=== PATIENT | male | born 1965 | race Caucasian/White ===

== ENCOUNTER 2020-11-19 14:05 | Inpatient (IN) | payer MEDICARE, OTHER ==
[~2020-11-19] VITALS: Ht 170.2 cm; Wt 97.2 kg
[2020-11-19] VITALS (9 sets, daily range): BP systolic 119–166; BP diastolic 31–92
--- NOTE | 2020-11-19 14:05 | NUR ---
PT BIB [facility] C/O SOB DURING DIALYSIS. PT IS AAOX2, NOT IN RESPIRATORY DISTRESS, HOOKED TO TOWER ATTENDANT, KEPT RESTED AND COMFORTABLE. WILL CONTINUE TO MONITOR.
--- NOTE | 2020-11-19 14:08 | NUR ---
PT SEEN AND EXAMINED BY .
--- NOTE | 2020-11-19 14:10 | NUR ---
RT AT BEDSIDE FOR BIPAP SET UP.
--- NOTE | 2020-11-19 14:16 | NUR ---
ROUTE RELIEF DRIVER AT BEDSIDE FOR XRAY.
[2020-11-19] MEDS ORDERED: CALC667C6 PO (14:33)
[2020-11-19] MEDS ORDERED: SODI15OR6 PO (14:33)
[2020-11-19] MEDS ORDERED: FOLI0.8T2 PO (14:33)
[2020-11-19] MEDS ORDERED: CLON0.1T PO (14:33)
[2020-11-19] MEDS ORDERED: IPRA4AER IH (14:33)
[2020-11-19] MEDS ORDERED: OLME1TAB19 PO (14:33)
[2020-11-19] MEDS ORDERED: ASPI-1169 PO (14:33)
[2020-11-19] MEDS ORDERED: INSU100V11 SQ (14:33)
[2020-11-19] MEDS ORDERED: FURO80TA85 PO (14:33)
[2020-11-19] MEDS ORDERED: AMLO-213 PO (14:33)
[2020-11-19] MEDS ORDERED: LIDOCAINE HCL/MPF 1% 30 ML VIAL IJ ONE (15:36)
[2020-11-19 16:12] LABS: BASOPHILS # (AUTO) 0.1 /CMM (0.0-0.2); HEMATOCRIT 31 % (39-51); HEMOGLOBIN 9.5 g/dL (13.5-17.5); LYMPHOCYTES # (AUTO) 0.4 /CMM (0.8-4.8); LYMPHOCYTES % (AUTO) 5.4 % (20.0-44.0); MEAN CORPUSCULAR HGB CONC 31 g/dl (31.0-36.0); MEAN CORPUSCULAR VOLUME 101 fL (80-96); MONOCYTES # (AUTO) 0.7 /CMM (0.1-1.30); MONOCYTES % (AUTO) 8.8 % (2.0-12.0); NEUTROPHILS # (AUTO) 6.2 /CMM (1.8-8.9); NEUTROPHILS % (AUTO) 80.8 % (43.0-81.0); PLATELET COUNT (AUTO) 180 /CMM (150-450); RED BLOOD CELL COUNT(AUTO) 3.02 MIL/uL (4.5-6.0); WHITE BLOOD COUNT (AUTO) 7.7 K/uL (4.3-11.0)
[2020-11-19 16:33] LABS: ALANINE AMINOTRANSFERASE 14 U/L (12-78); ALBUMIN 2.7 g/dL (3.4-5.0); ALKALINE PHOSPHATASE 62 U/L (46-116); ASPARTATE AMINOTRANSFERASE 12 U/L (15-37); BILIRUBIN,DIRECT 0.1 mg/dL (0.0-0.2); BILIRUBIN,TOTAL 0.3 mg/dL (0.2-1.0); CALCIUM, SERUM 8.5 mg/dL (8.5-10.1); CARBON DIOXIDE 24 mmol/L (21-32); CHLORIDE 103 mmol/L (98-107); GLUCOSE 158 mg/dL (74-106); NT-PRO BNP 12433 pg/mL (0-125); POTASSIUM 5.7 mmol/L (3.5-5.1); SODIUM SERUM 137 mmol/L (136-145); TOTAL PROTEIN, SERUM 6.8 g/dL (6.4-8.2); UREA NITROGEN, BLOOD 76 mg/dL (7-18)
[2020-11-19 16:34] LABS: CREATININE 9.5 mg/dL (0.6-1.3)
--- NOTE | 2020-11-19 16:52 | NUR ---
DISMANTLER AT BEDSIDE FOR THORACENTESIS.
[2020-11-19] MEDS ORDERED: SODIUM POLYSTYRENE SULFONATE 15 G/60 ML BOTTLE PO ONE ×2 (17:00→20:00)
[2020-11-19] MEDS ORDERED: SODIUM POLYSTYRENE SULFONATE 15 G/60 ML BOTTLE ONE (17:25)
[2020-11-19] MEDS ORDERED: Z GUARD REMEDY 2 OZ OINT TP PRN (17:30)
[2020-11-19] MEDS ORDERED: HYDROCODONE/APAP 5/325MG TABLET PO PRN (17:30)
[2020-11-19] MEDS ORDERED: ZOLPIDEM TARTRATE 5 MG TABLET PO PRN (17:30)
[2020-11-19] MEDS ORDERED: ACETAMINOPHEN 325 MG TABLET PO PRN (17:30)
--- NOTE | 2020-11-19 18:52 | NUR ---
NURSING SUP GAVE TELE BED 115-1.
--- NOTE | 2020-11-19 19:31 | NUR ---
ICU 255
--- NOTE | 2020-11-19 19:46 | NUR ---
REPORT GIVEN TO CARLOS WASHINGTON FOR SHARON.
--- NOTE | 2020-11-19 20:00 | NUR ---
MAYANK ZACARIAS TALKING TO PT FAMILY MEMBER REGARDING PT.
--- NOTE | 2020-11-19 20:11 | NUR ---
patient taken up to assigned room for SHARON.
[2020-11-19] MEDS: ONDANSETRON HCL/PF 4 MG/2 ML VIAL IVP PRN (20:20)
--- NOTE | 2020-11-19 20:30 | NUR ---
RN NOTES 2004 PM - [facility]. HAD S/P THORACENTESIS WITH 1.6LITER OUTPUT. PATIENT IS AOX 3, PLACED ON MONITOR SATURATION 97%, NSR WITH 1 DEGREE AVB, BREATHING EVEN AND UNLABORED. NO SOB. COMPLAINING OF PAIN ON BLE. WITH IV SITE ON LA ML INTACT AND PATENT, RA AVF WITH + BRUIT AND + THRILL LCW PERMA CATH WITH CLEAN DRESSING. WITH GOOD PERIPHERAL PULSES. SPPOKE WITH DAUGHTER ALEX VIA CELLPHONE AND WANTED PATIENT TO TRANSFER TO [facility] SON POSSIBLE. EXPLAINED THAT IT WILL NOT GONNA HAPPEN TONIGHT BECAUSE NO CM AT THIS TIME TO FIX ALL TRANSFER. ALEX IS CONCERNED IF WILL DO HD AT THIS TIME,. INFORMED DR RERE CAPONE REGARDING FAMILY CONCERNED.
[2020-11-19] MEDS: CALCIUM ACETATE 667 MG TABLET PO SCH (20:38)
--- NOTE | 2020-11-19 21:00 | NUR ---
RN NOTES PATIENT PLACED ON BPAP BY RT RATE 14 15/5 FIO2 30% SATURATION 94%.
--- NOTE | 2020-11-19 22:05 | NUR ---
RN NOTES DR. JERNIGAN ON THE FLOOR SPOKE TO PATIENT AT BEDSIDE. PER OFFICE INSPECTOR HE WILL HAVE DIALYSIS ANYTIME TONIGHT. VERIFY KAYEXALATE ORDER IF WILL GIVING IT AGAIN PER ER THEY GAVE 15 GRAM ALREADY. PER ONCALL TO CANCEL KAYEXALATE ORDER.
--- NOTE | 2020-11-19 23:00 | NUR ---
RN NOTES DIALYSIS STARTED AT THIS TIME
[2020-11-20] VITALS (41 sets, daily range): BP systolic 53–161; BP diastolic 37–89
[2020-11-20] MEDS ORDERED: ALBUMIN 25% 25 GM in PREMIX 1 EA IV ONE
--- NOTE | 2020-11-20 00:03 | NUR ---
RN NOTES DIALYSIS DONE REMOVE 2L. PATIENT ASLEEP VSS.
[2020-11-20] MEDS ORDERED: ALBUMIN 25% 100 ML IV ONE (00:19)
--- NOTE | 2020-11-20 00:19 | NUR ---
RN NOTES ALBUMIN IV ADMINISTERED DUE TO HYPOTENSION DURING DIALYSIS. WILL CLOSELY MONITOR.
[2020-11-20 04:32] LABS: BASOPHILS % (AUTO) 0.6 % (0.0-2.0); EOSINOPHILS % (AUTO) 7.2 % (0.0-6.0); HEMATOCRIT 27 % (39-51); HEMOGLOBIN 8.5 g/dL (13.5-17.5); LYMPHOCYTES # (AUTO) 0.4 /CMM (0.8-4.8); LYMPHOCYTES % (AUTO) 8.2 % (20.0-44.0); MEAN CORPUSCULAR HGB CONC 31 g/dl (31.0-36.0); MEAN CORPUSCULAR VOLUME 101 fL (80-96); MONOCYTES # (AUTO) 0.6 /CMM (0.1-1.30); MONOCYTES % (AUTO) 11.7 % (2.0-12.0); NEUTROPHILS # (AUTO) 3.9 /CMM (1.8-8.9); NEUTROPHILS % (AUTO) 72.3 % (43.0-81.0); PLATELET COUNT (AUTO) 139 /CMM (150-450); RED BLOOD CELL COUNT(AUTO) 2.69 MIL/uL (4.5-6.0); WHITE BLOOD COUNT (AUTO) 5.3 K/uL (4.3-11.0)
[2020-11-20 04:48] LABS: THYROID STIMULATING HORMONE 1.847 uIU/mL (0.358-3.74)
[2020-11-20 04:52] LABS: CALCIUM, SERUM 8.3 mg/dL (8.5-10.1); MAGNESIUM 2.1 mg/dL (1.8-2.4); PHOSPHORUS 4.7 mg/dL (2.5-4.9); POTASSIUM 4.7 mmol/L (3.5-5.1)
[2020-11-20 05:01] LABS: CREATININE 8.4 mg/dL (0.6-1.3)
--- NOTE | 2020-11-20 06:43 | NUR ---
RN NOTES PATIENT ASLEEP WELL ON BED. BREATHING EVEN AND UNLABORED ON BIPAP TOLERATED WELL. AFEBRILE VSS. S/P DIALYSIS TOLERATED WELL. KEPT PT CLEAN AND DRY. WILL CONTINUE TO MONITOR.
[2020-11-20] MEDS: ONDANSETRON HCL/PF 4 MG/2 ML VIAL IVP PRN (08:32)
[2020-11-20] MEDS: CLONIDINE HCL 0.1 MG TABLET PO SCH ×2 (09:00→09:40)
[2020-11-20] MEDS ORDERED: ASPIRIN 81 MG TAB.CHEW PO SCH (09:00)
[2020-11-20] MEDS ORDERED: AMLODIPINE BESYLATE 10 MG TABLET PO SCH (09:00)
[2020-11-20] MEDS: CALCIUM ACETATE 667 MG TABLET PO SCH ×2 (09:38→13:45)
--- NOTE | 2020-11-20 13:30 | NUR ---
MD reviewing pt data and interventions given - additional dialysis to be done and then pt is to be discharged home to follow with primary MD in a.m. - pt remaining restful without incident - all sites same
--- NOTE | 2020-11-20 14:00 | NUR ---
door trimmer atttending - rambo pt - to start on dialysis as perr order - via left subclavian vascath site
--- NOTE | 2020-11-20 16:00 | NUR ---
pt tolerated dialysis with 2000 ml off -vs and ns and all sites same
--- NOTE | 2020-11-20 16:50 | NUR ---
pt voices understanding of aftercare instructions - discharging home in care of daughter - to private auto via wheelchair to follow with safety investigator at [facility] as previously discussed with attending MD - pt in good spirits with vs and ns and all sites unchanged - pt with consistent history of transferring without difficulty -
[2020-11-20] MEDS ORDERED: FUROSEMIDE 40 MG TABLET PO SCH (19:28)
== END 2020-11-20 17:43 | disposition short-term general hospital (02) | DRG 189 ==
LOC: ER 14:05 → TELE1 19:13 → ICU 19:32
PROC: 5A09357 Assistance with Respiratory Ventilation, Less than 24 Consecutive Hours, Continuous Positive Airway Pressure (ICD-10-PCS; principal; 2020-11-19)
PROC: 5A1D70Z Performance of Urinary Filtration, Intermittent, Less than 6 Hours Per Day (ICD-10-PCS; 2020-11-19)
PROC: 0W993ZZ Drainage of Right Pleural Cavity, Percutaneous Approach (ICD-10-PCS; 2020-11-19)
PROC: 05HA33Z Insertion of Infusion Device into Left Brachial Vein, Percutaneous Approach (ICD-10-PCS; 2020-11-19)
DX: J96.01 Acute respiratory failure with hypoxia (principal); N18.6 End stage renal disease; I12.0 Hypertensive chronic kidney disease with stage 5 chronic kidney disease or end stage renal disease; J90 Pleural effusion, not elsewhere classified; Z20.822 Contact with and (suspected) exposure to COVID-19; Z79.82 Long term (current) use of aspirin; Z99.2 Dependence on renal dialysis; E87.5 Hyperkalemia; Z79.4 Long term (current) use of insulin; E11.22 Type 2 diabetes mellitus with diabetic chronic kidney disease; Z79.51 Long term (current) use of inhaled steroids; Z79.899 Other long term (current) drug therapy; M89.9 Disorder of bone, unspecified; G47.33 Obstructive sleep apnea (adult) (pediatric); E66.01 Morbid (severe) obesity due to excess calories; D64.9 Anemia, unspecified; Z68.33 Body mass index [BMI] 33.0-33.9, adult; R79.89 Other specified abnormal findings of blood chemistry
CPT/HCPCS: 36415; 71045-TC; 80048-TC; 80061-TC; 80076-TC; 83605-TC; 83735-TC; 83880; 84100-TC; 84443-TC; 84484-TC; 85025-TC; 85730-TC; 86705; 86706; 87040-TC; 87081-TC; 90935-TC; 93307-TC; 94660; 94799-TC; A4216; C9803; G0378; J2405; J3490; P9047

== ENCOUNTER 2021-12-04 00:38 | Inpatient (IN) | payer MEDICARE, OTHER ==
[2021-12-04] VITALS (19 sets, daily range): BP systolic 97–167; BP diastolic 41–125
[~2021-12-04] VITALS: Ht 172.7 cm; Wt 84.4 kg
[~2021-12-04 00:38] MED LIST: AMLO-213 PO; ASPI-1169 PO; CALC667C6 PO; FOLI0.8T2 PO; FURO80TA85 PO; INSU100V11 SQ; IPRA4AER IH; OLME1TAB19 PO; SODI15OR6 PO
--- NOTE | 2021-12-04 00:50 | NUR ---
[id number] FROM HOME C/O SOB X1HOUR NORMALLY ON 5L NC DESATTING AT 92%. HX OF LUNG CA STAGE 3; LAST CHEMO WAS 1 WK AGO. LAST HD WAS 12/02 & 4L REMOVED. JOSE HD AV SHUNT NOTED. PT A/OX4. CONNECTED PT TO POX AND MONITOR. SAFETY MEASURES IN PLACE.
--- NOTE | 2021-12-04 00:55 | NUR ---
RT AT PT'S BEDSIDE. PT ON BIPAP SETTINGS: IPAP 20 EPAP 5 RR 16 TOLERATING AT 100%.
[2021-12-04] MEDS ORDERED: FUROSEMIDE 40 MG/4 ML VIAL IV ONE (01:00)
--- NOTE | 2021-12-04 01:01 | NUR ---
COVID ANTIGEN SWAB COLLECTED AND SENT TO LAB
[2021-12-04] MEDS ORDERED: FUROSEMIDE 40 MG/4 ML VIAL ONE (01:02)
--- NOTE | 2021-12-04 01:10 | NUR ---
RT NOTE Pt rec'd on cpap mask @ 15lpm via [employer]. Pt showed signs of tachypnea and SOB. Pt diaphoretic and coarse crackles heard on auscultation. Pt placed on bipap per md orders on noted settings as charted. Alarms are set and audible. Ambu bag @ bedside. Bipap plugged into red outlet. ABG to be taken in 1 hour. Will continue to monitor closely. Addendum: 12/04/21 at 0114 by MEAGAN WILLIS RT Amended: Links added.
[2021-12-04] MEDS ORDERED: MORPHINE SULFATE INJ 2 MG/ML DISP.SYRIN ONE (01:41)
[2021-12-04] MEDS ORDERED: MORPHINE SULFATE INJ 2 MG/ML DISP.SYRIN IV ONE (02:00)
[2021-12-04 02:02] LABS: HEMATOCRIT 31 % (39-51); HEMOGLOBIN 10.1 g/dL (13.5-17.5); MEAN CORPUSCULAR HGB CONC 33 g/dl (31.0-36.0); MEAN CORPUSCULAR VOLUME 94 fL (80-96); RED BLOOD CELL COUNT(AUTO) 3.25 MIL/uL (4.5-6.0); WHITE BLOOD COUNT (AUTO) 5.9 K/uL (4.3-11.0)
[2021-12-04 02:03] LABS: BASOPHILS % (AUTO) 0.2 % (0.0-2.0); LYMPHOCYTES # (AUTO) 0.4 K/uL (0.8-4.8); LYMPHOCYTES % (AUTO) 6.1 % (20.0-44.0); MONOCYTES # (AUTO) 0.6 K/uL (0.1-1.30); NEUTROPHILS # (AUTO) 4.9 K/uL (1.8-8.9); NEUTROPHILS % (AUTO) 82.7 % (43.0-81.0); PLATELET COUNT (AUTO) 135 K/uL (150-450)
--- NOTE | 2021-12-04 02:10 | NUR ---
RT AT BEDSIDE FOR ABG
--- NOTE | 2021-12-04 02:18 | NUR ---
POC BS 118
[2021-12-04] MEDS ORDERED: Calcium Gluconate 0.465 MEQ/ML VIAL IV ONE (02:53)
[2021-12-04] MEDS ORDERED: SODIUM POLYSTYRENE SULFONATE 15 G/60 ML BOTTLE ONE (02:53)
[2021-12-04] MEDS ORDERED: SODIUM BICARBONATE SYR 50 MEQ/50 ML DISP.SYRIN ONE (02:53)
[2021-12-04] MEDS ORDERED: DEXTROSE 50%-WATER 50 ML DISP.SYRIN ONE (02:54)
[2021-12-04] MEDS ORDERED: INSULIN REGULAR, HUMAN 100 UNIT/ML 10 ML VIAL ONE (02:54)
[2021-12-04 03:33] LABS: ALANINE AMINOTRANSFERASE 25 U/L (12-78); ALBUMIN 3.6 g/dL (3.4-5.0); ALKALINE PHOSPHATASE 121 U/L (46-116); ASPARTATE AMINOTRANSFERASE 22 U/L (15-37); BILIRUBIN,DIRECT 0.1 mg/dL (0.0-0.2); BILIRUBIN,TOTAL 0.4 mg/dL (0.2-1.0); CALCIUM, SERUM 7.8 mg/dL (8.5-10.1); CARBON DIOXIDE 25 mmol/L (21-32); CHLORIDE 97 mmol/L (98-107); GLUCOSE 164 mg/dL (74-106); SODIUM SERUM 133 mmol/L (136-145); TOTAL PROTEIN, SERUM 7.8 g/dL (6.4-8.2)
--- NOTE | 2021-12-04 03:38 | NUR ---
XRAY AT BEDSIDE
--- NOTE | 2021-12-04 03:48 | NUR ---
EMT AT BEDSIDE FOR EKG
[2021-12-04] MEDS ORDERED: CEFTRIAXONE 1GM BAG (ER ONLY) 50 ML IV ONE (03:55)
[2021-12-04] MEDS ORDERED: ALBUTEROL FS 2.5 MG/0.5 ML VIAL.NEB ONE (03:56)
--- NOTE | 2021-12-04 03:56 | NUR ---
RT AT BEDSIDEFOR BREATHING TX
--- NOTE | 2021-12-04 03:59 | NUR ---
EPIC PANEL PAGED
--- NOTE | 2021-12-04 04:05 | NUR ---
RT AT PT'S BEDSIDE FOR BREATING TX
--- NOTE | 2021-12-04 04:18 | NUR ---
REPEAT POC BS 102
--- NOTE | 2021-12-04 04:20 | NUR ---
PT UNABLE TO GIVE URINE AT THIS TIME. OFFERED IN AND OUT CATHETER AND PT REFUSED.
[2021-12-04 04:21] LABS: CREATININE 8.9 mg/dL (0.6-1.3); POTASSIUM 9.1 mmol/L (3.5-5.1)
[2021-12-04 04:22] LABS: UREA NITROGEN, BLOOD 80 mg/dL (7-18)
[2021-12-04] MEDS ORDERED: AZITHROMYCIN 500 MG VIAL ONE (04:22)
[2021-12-04] MEDS ORDERED: MAG HYDROX/AL HYDROX/SIMETH 30 ML UDC PO PRN (04:30)
[2021-12-04] MEDS ORDERED: ZOLPIDEM TARTRATE 5 MG TABLET PO PRN (04:30)
[2021-12-04] MEDS ORDERED: MAGNESIUM HYDROXIDE 30 ML UDC PO PRN (04:30)
[2021-12-04] MEDS ORDERED: ONDANSETRON HCL/PF 4 MG/2 ML VIAL IVP PRN (04:30)
[2021-12-04] MEDS ORDERED: Z GUARD REMEDY 4 OZ OINT TP PRN (04:30)
--- NOTE | 2021-12-04 04:31 | NUR ---
Note tr in EDM - 12/04/21 at 0742 by SISI S/W YANIRA (RADIOLOGY). PER YANIRA, STAT ORDER FOR VQ STUDY IS UNABLE TO BE PERFORMED THE CERTIFIED PROCEDURAL CODER NUCLEAR MED TECH, [facility], IS REFUSING TO COME IN. MADE AWARE
--- NOTE | 2021-12-04 04:42 | NUR ---
Note shylahakan in [facility] - 12/04/21 at 0658 by REMBERTO CALLED MARIBEL Temnos TECH REGARDING VQ SCAN ORDER. PER MARIBEL, HE COULD NOT COME BECAUSE HE WILL NOT BE ABLE TO FINISH THE PROCEDURE IN TIME FOR HIS OTHER JOB.
--- NOTE | 2021-12-04 04:42 | NUR ---
CALLED AND SPOKE WITH MARIBEL Skribit TECH AND WAS INFORMED THAT PROCEDURE WILL NOT BE DONE UNTIL THE MORNING. RN PAPERHANGER PIPE IS AWARE
--- NOTE | 2021-12-04 04:45 | NUR ---
LAB AT BEDSIDE FOR BLOOD DRAW
--- NOTE | 2021-12-04 04:50 | NUR ---
COVID PCR SWABBED AND SENT TO LAB
[2021-12-04] MEDS ORDERED: SODIUM BICARBONATE SYR 50 MEQ/50 ML DISP.SYRIN IV ONE (05:00)
[2021-12-04] MEDS ORDERED: INSULIN REGULAR, HUMAN 100 UNIT/ML 10 ML VIAL IV ONE (05:00)
[2021-12-04] MEDS ORDERED: ALBUTEROL FS 2.5 MG/3 ML VIAL.NEB NEB ONE (05:00)
[2021-12-04] MEDS ORDERED: SODIUM POLYSTYRENE SULFONATE 15 G/60 ML BOTTLE RC ONE (05:00)
[2021-12-04] MEDS ORDERED: AZITHROMYCIN 500 MG in IV D5W 250 ML IV ONE (05:00)
[2021-12-04] MEDS ORDERED: Calcium Gluconate 1GM/10ML 4.65 MEQ in IV NS 0.9% 100 ML IV ONE (05:00)
[2021-12-04] MEDS ORDERED: CEFTRIAXONE 1GM BAG (ER ONLY) 1 GM/50 ML PIGGYBACK IV ONE (05:00)
[2021-12-04] MEDS ORDERED: DEXTROSE 50%-WATER 50 ML DISP.SYRIN IVP ONE (05:00)
--- NOTE | 2021-12-04 05:25 | NUR ---
IV JESSICA #20G S/L PATENT AND INTACT. BLOOD COLLECTED AND SENT TO LAB
--- NOTE | 2021-12-04 05:42 | NUR ---
ALEX (DAUGHTER IN LAW) DENNIS (SON IN LAW)
--- NOTE | 2021-12-04 05:45 | NUR ---
CALLED FOR REPORT. RN WILL RETURN CALL.
--- NOTE | 2021-12-04 06:24 | NUR ---
REPORT GIVEN TO KRZYSZTOF
[2021-12-04 06:34] LABS: MAGNESIUM 2.5 mg/dL (1.8-2.4)
[2021-12-04 06:38] LABS: CREATININE 9.3 mg/dL (0.6-1.3); POTASSIUM 8.7 mmol/L (3.5-5.1)
--- NOTE | 2021-12-04 07:03 | NUR ---
RT NOTE pt transferred to ICU 255. pt taken off bipap and placed on 4lnc. movie theater manager aware. Will continue to monitor. Addendum: 12/04/21 at 0704 by MEAGAN WILLIS RT Amended: Links added.
--- NOTE | 2021-12-04 07:05 | NUR ---
pt transported to room 255 on cafeteria monitor per acls without incident
--- NOTE | 2021-12-04 07:54 | NUR ---
RN NOTE PATIENT RECEIVED IN BED, AWAKE, A&OX4. PATIENT ON 4L O2 NC AT THIS TIME SAT 96% ON BEDSIDE MONITOR, LUNG SOUNDS DIMINISHED THROUGHOUT, RR 26. RIGHT ARM AV FISTULA, LEFT AC 18G SL AND LEFT WRIST 20G SL IN PLACE. BED LOCKED AND IN LOWEST POSITION, CALL LIGHT WITHIN REACH, 2 SIDE RAILS UP.
[2021-12-04] MEDS: ASPIRIN 81 MG TAB.CHEW PO SCH (08:09)
[2021-12-04] MEDS: AMLODIPINE BESYLATE 10 MG TABLET PO SCH ×2 (08:09→08:21)
[2021-12-04] MEDS: CALCIUM ACETATE 667 MG CAP/TAB PO SCH ×3 (08:09→17:15)
[2021-12-04] MEDS: VIT B CMPLX 3/FA/VIT C/BIOTIN 1 TAB TABLET PO SCH (08:09)
[2021-12-04] MEDS: INSULIN LISPRO/ASPART 100 UNIT/ML CARTRIDGE SQ SCH ×2 (08:13→17:23)
[2021-12-04] MEDS: HYDROCHLOROTHIAZIDE 25 MG TABLET PO SCH ×2 (08:15→08:21)
[2021-12-04] MEDS: LOSARTAN POTASSIUM 50 MG TABLET PO SCH ×2 (08:16→08:20)
--- NOTE | 2021-12-04 08:21 | NUR ---
RN NOTE PT SCHEDULED FOR STAT HD THIS MORNING. ALL BP MEDS HELD.
[2021-12-04] MEDS: SODIUM POLYSTYRENE SULFONATE 15 G/60 ML BOTTLE PO SCH ×2 (08:34→11:20)
--- NOTE | 2021-12-04 09:05 | NUR ---
RN NOTE PT REFUSING KAYEXELATE AT THIS TIME. STATES HE WILL TAKE IT AFTER RECEIVING HD. PT EDUCATED ON HIGH LEVEL OF POTASSIUM AND RISKS ASSOCIATED WITH REFUSING THIS MEDICATION. PT VERBALIZES UNDERSTANDING, CONTINUES TO REFUSE IT AT THIS TIME.
--- NOTE | 2021-12-04 09:30 | NUR ---
RN NOTE RT UNABLE TO COLLECT BLOOD SAMPLE FOR ABG RESULTS AFTER 2 ATTEMPT. PT REFUSING TO ATTEMPT A THIRD TIME AT THIS TIME. WILL ATTEMPT TO COLLECT LATER AFTER HD.
[2021-12-04] MEDS ORDERED: ALBUMIN 25% 25 GM in PREMIX 1 EA IV PRN (10:30)
--- NOTE | 2021-12-04 12:29 | NUR ---
RN NOTE HD COMPLETED, 3000CC REMOVED. PT TOLERATED WELL, VERBALIZES FEELING BETTER THAN EARLIER. BP 139/65, HR IN THE 80S.
[2021-12-04 15:56] LABS: CALCIUM, SERUM 8.6 mg/dL (8.5-10.1); CREATININE 6.3 mg/dL (0.6-1.3)
[2021-12-04 16:02] LABS: POTASSIUM 6.4 mmol/L (3.5-5.1)
[2021-12-04] MEDS: ACETAMINOPHEN 325 MG TABLET PO PRN (17:15)
--- NOTE | 2021-12-04 17:29 | NUR ---
NM: LUNG V/Q WAS COMPLETED. TECH:RB
[2021-12-04] MEDS: HYDROCODONE/APAP 5/325MG TABLET PO PRN ×2 (17:36→23:54)
--- NOTE | 2021-12-04 17:40 | NUR ---
UNABLE TO OBTAIN ABG. MULTIPLE ATTEMPTS BY 3 DIFFERENT RTS. PT UNCOOPERATIVE. CHARGE NURSE MANDUJANO AND PADMINI COKER NOTIFIED. PT SHOWS NO S/S OF SOB Addendum: 12/04/21 at 1742 by SUSSY DUDLEY RT Amended: Links added.
[2021-12-04] MEDS ORDERED: SODIUM POLYSTYRENE SULFONATE 15 G/60 ML BOTTLE PO ONE (18:00)
--- NOTE | 2021-12-04 18:52 | NUR ---
RN CLOSING NOTE PATIENT REMAINS IN BED, AWAKE, A&OX4. PATIENT ON 4L O2 NC AT THIS TIME SAT 95% ON BEDSIDE MONITOR. RIGHT ARM AV FISTULA, LEFT AC 18G SL LEFT WRIST 20G SL AND LEFT UA MIDLINE IN PLACE. ALL NEEDS ATTENDED DURING SHIFT. BED LOCKED AND IN LOWEST POSITION, CALL LIGHT WITHIN REACH, 2 SIDE RAILS UP. WILL ENDORSE TO MILK TANKER DRIVER NURSE FOR SHARON.
[2021-12-04 19:00] LABS: ABG BASE EXCESS -3.5 mmol/L; ABG OXYGEN SATURATION 94.1 % (92.0-98.5); ABG PCO2 39.6 mmHg (35.0-45.0); ABG PH 7.357 (7.350-7.450); ABG PO2 80.9 mmHg (75.0-100.0); AaDO2 158.8 mmHg; COHb 1.4 % (0.5-1.5); MetHb 0.2 % (0.0-1.5); O2Hb 92.6 % (94.0-97.0); SITE, ABG Left Radial; VENT MODE, BG Nasal Cannula
--- NOTE | 2021-12-04 19:05 | NUR ---
RN OPENING NOTES RECEIVED PATIENT ON BED AWAKE, A/O X 4, ON NASAL CANULA @ 4LPM SATING AT 96%. RESPIRATORY EVEN AND UNLABORED NO SOB NOTED, REMAIN AFEBRILE. DENIES PAIN, NO S/S OF DISTRESS NOTED. PATIENT HAS LAC # 18, LEFT WRIST #20 SL AND LEFT UPPER ARM MID LINE, FLUSHED WITH NS, NO S/S OF INFILTRATION NOTED AT SITE. RIGHT UPPER ARM AV SHUNT FOR DIALYSIS, NO BLEEDING NOTED AT SITE. SAFETY MEASURE PROVIDED. BED IN LOWEST POSITION, LOCKED. CONTINUE TO MONITOR.
[2021-12-04 21:36] LABS: CREATININE 7.1 mg/dL (0.6-1.3)
[2021-12-04 21:41] LABS: POTASSIUM 6.3 mmol/L (3.5-5.1)
[2021-12-05] VITALS (30 sets, daily range): BP systolic 66–158; BP diastolic 28–98
--- NOTE | 2021-12-05 00:15 | NUR ---
RN NOTES DIALYSIS STARTED, PATIENT VITAL SIGN WITH IN NORMAL LIMITS.
--- NOTE | 2021-12-05 02:15 | NUR ---
RN NOTES DIALYSIS DONE, REMOVED 2000ML, PROCEDURE TOLERATED WELL, DENIES PAIN.
[2021-12-05 04:22] LABS: BASOPHILS % (AUTO) 0.3 % (0.0-2.0); EOSINOPHILS % (AUTO) 6.1 % (0.0-6.0); HEMATOCRIT 27 % (39-51); LYMPHOCYTES # (AUTO) 0.3 K/uL (0.8-4.8); LYMPHOCYTES % (AUTO) 9.4 % (20.0-44.0); MEAN CORPUSCULAR HGB CONC 34 g/dl (31.0-36.0); MEAN CORPUSCULAR VOLUME 95 fL (80-96); MONOCYTES # (AUTO) 0.5 K/uL (0.1-1.30); MONOCYTES % (AUTO) 15.2 % (2.0-12.0); NEUTROPHILS # (AUTO) 2.5 K/uL (1.8-8.9); PLATELET COUNT (AUTO) 97 K/uL (150-450); RED BLOOD CELL COUNT(AUTO) 2.85 MIL/uL (4.5-6.0); WHITE BLOOD COUNT (AUTO) 3.6 K/uL (4.3-11.0)
[2021-12-05 04:30] LABS: CALCIUM, SERUM 7.9 mg/dL (8.5-10.1); CREATININE 4.8 mg/dL (0.6-1.3); POTASSIUM 4.3 mmol/L (3.5-5.1)
[2021-12-05 05:18] LABS: BASOPHILS % (MANUAL) 0 % (0.0-2.0); EOSINOPHILS % (MANUAL) 4 % (0-4); LYMPHOCYTES % (MANUAL) 10 % (16-48); MONOCYTES % (MANUAL) 11 % (0-11.0); NEUTROPHILS % (MANUAL) 75 (42-76)
--- NOTE | 2021-12-05 07:13 | NUR ---
RN NOTES PATIENT REMAIN STABLE THROUGH OUT THE SHIFT. RESPIRATORY EVEN AND UNLABORED NO SOB NOTED, REMAIN AFEBRILE. DENIES PAIN, NO S/S OF DISTRESS NOTED. S/P HEMODIALYSIS, 2000ML OUT. RIGHT UPPER ARM AV SHUNT FOR DIALYSIS, NO BLEEDING NOTED AT SITE. SAFETY MEASURE PROVIDED. BED IN LOWEST POSITION, LOCKED. REPORT GIVEN TO MORNING SHIFT NURSE.
[2021-12-05] MEDS: CALCIUM ACETATE 667 MG CAP/TAB PO SCH ×2 (07:54→13:00)
[2021-12-05] MEDS: VIT B CMPLX 3/FA/VIT C/BIOTIN 1 TAB TABLET PO SCH (07:54)
[2021-12-05] MEDS: ASPIRIN 81 MG TAB.CHEW PO SCH (07:55)
[2021-12-05] MEDS: ACETAMINOPHEN 325 MG TABLET PO PRN (07:55)
--- NOTE | 2021-12-05 07:55 | NUR ---
rn notes received patient A/A/O x4, on o2-5lnc, HR- 88 on bedside monitor, no acute respiratory distress, bs-78mg/dl, due medication administered, vss, patient was complaining of headache administered Tylenol 650 mg po prn per patient request.patient has av shunt on right arm intact, swollen keep elevated using pillow . patient tolerated breakfast well. iv access on JESSICA mid line intact. using urina. call light within to reach. will follow up.
[2021-12-05] MEDS: HYDROCHLOROTHIAZIDE 25 MG TABLET PO SCH (07:56)
[2021-12-05] MEDS: LOSARTAN POTASSIUM 50 MG TABLET PO SCH (07:57)
[2021-12-05] MEDS: INSULIN LISPRO/ASPART 100 UNIT/ML CARTRIDGE SQ SCH (07:58)
[2021-12-05] MEDS: IPRATROPIUM/ALBUTEROL INHALER IH SCH ×2 (08:35→08:48)
[2021-12-05] MEDS: SODIUM POLYSTYRENE SULFONATE 15 G/60 ML BOTTLE PO SCH ×2 (08:40→09:00)
[2021-12-05] MEDS: AMLODIPINE BESYLATE 10 MG TABLET PO SCH (08:41)
[2021-12-05] MEDS ORDERED: METOPROLOL TARTRATE 25 MG TABLET PO SCH (09:00)
[2021-12-05] MEDS ORDERED: APIXABAN 2.5 MG TABLET PO SCH (09:00)
[2021-12-05] MEDS: LEVOFLOXACIN 500 MG /D5W 100ML 100 ML IV SCH ×2 (09:00→10:15)
[2021-12-05] MEDS ORDERED: FUROSEMIDE 40 MG TABLET PO SCH (09:00)
--- NOTE | 2021-12-05 10:26 | NUR ---
RN NOTES PATIENT REFUSED CT OF PULMONARY ANGIOGRAM, AND ZANE, ASKING TO BE DISCHARGE HOME. NOTIFIED
[2021-12-05] MEDS: HYDROCODONE/APAP 5/325MG TABLET PO PRN (10:51)
--- NOTE | 2021-12-05 10:51 | NUR ---
RN NOTES ADMINISTERED NARCO5/325 MG PO PRN FOR GENERLIZED PAIN 12/28 PER PATIENT REQUEST. BP-99/71,P-88.
--- NOTE | 2021-12-05 11:00 | NUR ---
RN NOTES Hypoxemic respiratory failure secondary to fluid overload rule out component of pneumonitis with elevated procalcitonin. 2. End-stage renal disease on hemodialysis with hyperkalemia #3 obstructive sleep apnea syndrome on nocturnal BiPAP line #4 history of lung CA, details not available 5. Hypertension #6 diabetes mellitus 7. Bilateral lower extremity DVTs rule out pulmonary emboli Impression/Plan Ideally the patient should be treated with full course of antibiotics, full course of anticoagulants for his lower extremity DVT and should have an evaluation for pulmonary emboli with CT angiogram as well as oxygen titration. Unfortunately despite discussion with patient he remains adamant about leaving AGAINST MEDICAL ADVICE off antibiotics and off anticoagulants. Dr HILL SPOKE WITH THE PATIENT, AND EXPLAINED RISKS AND CONSEQUENCES. RN MY SELF SPOKE WITH THE NAME ALEX ABOUT AMA , AND PATIENTS NOTED THEY ARE AWARE OF PATIENT CONDITION AND NOT NEW DVT, AND PATIENT FOLLOWING OUTPATIENT MD. AGREES TO POST ANESTHESIA NURSE PATIENT.
--- NOTE | 2021-12-05 14:05 | NUR ---
rn notes patient discharge at this time going home signed AMA. Escorted patient to the lobby for safety, oxygen broth from home via family 3lnc. patient sign paperwork for belonging, and with him. 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
== END 2021-12-05 15:14 | disposition left against medical advice (07) | DRG 291 ==
LOC: ER 00:45 → TRANSITION 04:58 → ICU 05:01
PROVIDERS: ADMIT Internal Medicine; ATTEND Internal Medicine
PROC: 5A09357 Assistance with Respiratory Ventilation, Less than 24 Consecutive Hours, Continuous Positive Airway Pressure (ICD-10-PCS; principal; 2021-12-04)
PROC: 5A1D70Z Performance of Urinary Filtration, Intermittent, Less than 6 Hours Per Day (ICD-10-PCS; 2021-12-04)
PROC: 05HA33Z Insertion of Infusion Device into Left Brachial Vein, Percutaneous Approach (ICD-10-PCS; 2021-12-04)
DX: I13.2 Hypertensive heart and chronic kidney disease with heart failure and with stage 5 chronic kidney disease, or end stage renal disease (principal); J96.01 Acute respiratory failure with hypoxia; N18.6 End stage renal disease; I50.33 Acute on chronic diastolic (congestive) heart failure; I82.413 Acute embolism and thrombosis of femoral vein, bilateral; Z99.2 Dependence on renal dialysis; E87.5 Hyperkalemia; Z20.822 Contact with and (suspected) exposure to COVID-19; E11.22 Type 2 diabetes mellitus with diabetic chronic kidney disease; Z87.891 Personal history of nicotine dependence; Z99.81 Dependence on supplemental oxygen; Z92.21 Personal history of antineoplastic chemotherapy; Z79.4 Long term (current) use of insulin; Z79.51 Long term (current) use of inhaled steroids; Z79.82 Long term (current) use of aspirin; Z79.899 Other long term (current) drug therapy; Z85.118 Personal history of other malignant neoplasm of bronchus and lung; D63.8 Anemia in other chronic diseases classified elsewhere; E83.39 Other disorders of phosphorus metabolism; G47.33 Obstructive sleep apnea (adult) (pediatric); I48.91 Unspecified atrial fibrillation
CPT/HCPCS: 36415; 36600; 71045-TC; 78582; 80048-TC; 80076-TC; 82803-TC; 82962-TC; 83605-TC; 83735-TC; 83880; 84100-TC; 84484-TC; 85025-TC; 85730-TC; 87040-TC; 87340; 90935-TC; 93307-TC; 93970-TC; 94799-TC; A4216; A9540; A9567; C9803; G0378; J0456; J0610; J0696; J1815; J1940; J1956; J2270; J3490; J7030; J7050; J7060; P9047; U0003

== ENCOUNTER 2022-06-08 23:34 | Inpatient (IN) | payer MEDICARE, OTHER ==
[~2022-06-08] VITALS: Ht 170.2 cm; Wt 92.5 kg
--- NOTE | 2022-06-09 00:36 | NUR ---
ER CLOUD ENGAGEMENT PARTNER AT BEDSIDE
[2022-06-09 01:15] LABS: CALCIUM, SERUM 7.6 mg/dL (8.5-10.1); CARBON DIOXIDE 30 mmol/L (21-32); CHLORIDE 96 mmol/L (98-107); GLUCOSE 195 mg/dL (74-106); POTASSIUM 5.1 mmol/L (3.5-5.1); SODIUM SERUM 136 mmol/L (136-145); UREA NITROGEN, BLOOD 72 mg/dL (7-18)
[2022-06-09 01:18] LABS: HEMATOCRIT 30 % (39-51); HEMOGLOBIN 9.3 g/dL (13.5-17.5); MEAN CORPUSCULAR HGB CONC 31 g/dl (31.0-36.0); MEAN CORPUSCULAR VOLUME 97 fL (80-96); PLATELET COUNT (AUTO) 206 K/uL (150-450); RED BLOOD CELL COUNT(AUTO) 3.11 MIL/uL (4.5-6.0); WHITE BLOOD COUNT (AUTO) 4.5 K/uL (4.3-11.0)
[2022-06-09 01:27] LABS: ALANINE AMINOTRANSFERASE 25 U/L (12-78); ALBUMIN 2.8 g/dL (3.4-5.0); ALKALINE PHOSPHATASE 106 U/L (46-116); ASPARTATE AMINOTRANSFERASE 29 U/L (15-37); BILIRUBIN,DIRECT 0.2 mg/dL (0.0-0.2); BILIRUBIN,TOTAL 0.4 mg/dL (0.2-1.0); TOTAL PROTEIN, SERUM 7.1 g/dL (6.4-8.2)
[2022-06-09] MEDS ORDERED: CEFTRIAXONE 1GM BAG (ER ONLY) 50 ML IV ONE ×2 (01:27→01:30)
[2022-06-09] MEDS ORDERED: methylPREDNISolone SOD SUCC 125 MG/2ML VIAL ONE (01:27)
[2022-06-09] MEDS ORDERED: AZITHROMYCIN 500 MG in IV D5W 250 ML IV ONE (01:30)
[2022-06-09] MEDS ORDERED: ALBUTEROL FS 2.5 MG/3 ML VIAL.NEB CONTNEB ONE (01:30)
[2022-06-09] MEDS ORDERED: methylPREDNISolone SOD SUCC 125 MG/2ML VIAL IV ONE (01:30)
[2022-06-09] MEDS ORDERED: IPRATROPIUM NEB FS 0.5 MG/2.5 ML AMPUL.NEB NEB ONE (01:30)
[2022-06-09 01:34] LABS: CREATININE 8.3 mg/dL (0.6-1.3)
[2022-06-09 01:49] LABS: ABG BASE EXCESS 5.3 mmol/L; ABG PCO2 46.4 mmHg (35.0-45.0); ABG PH 7.432 (7.350-7.450); ABG PO2 73.8 mmHg (75.0-100.0); COHb 1.1 % (0.5-1.5); MetHb 0.3 % (0.0-1.5); O2Hb 92.6 % (94.0-97.0); SITE, ABG Left Brachial; VENT MODE, BG N/C 5L
[2022-06-09] MEDS ORDERED: AZITHROMYCIN 500 MG VIAL ONE (02:00)
[2022-06-09] MEDS ORDERED: ALBUTEROL FS 2.5 MG/3 ML VIAL.NEB ONE (02:01)
[2022-06-09] MEDS ORDERED: MAGNESIUM HYDROXIDE 30 ML UDC PO PRN (03:00)
[2022-06-09] MEDS ORDERED: ACETAMINOPHEN 325 MG TABLET PO PRN (03:00)
[2022-06-09] MEDS ORDERED: HYDROCODONE/APAP 5/325MG TABLET PO PRN (03:00)
[2022-06-09] MEDS ORDERED: MAG HYDROX/AL HYDROX/SIMETH 30 ML UDC PO PRN (03:00)
[2022-06-09] MEDS ORDERED: DEXTROSE 50%-WATER 50 ML DISP.SYRIN IV PRN (03:00)
[2022-06-09] MEDS ORDERED: TEMAZEPAM 15 MG CAPSULE PO PRN (03:00)
[2022-06-09] MEDS ORDERED: Z GUARD REMEDY 4 OZ OINT TP PRN (03:00)
[2022-06-09] MEDS ORDERED: ONDANSETRON HCL/PF 4 MG/2 ML VIAL IVP PRN (03:00)
[2022-06-09] MEDS ORDERED: HYDROCODONE/APAP 10/325MG TABLET PO PRN (03:00)
[2022-06-09 03:14] LABS: BAND % (MANUAL) 6 % (0.0-5.0); BASOPHILS % (MANUAL) 0 % (0.0-2.0); EOSINOPHILS % (MANUAL) 0 % (0-4); LYMPHOCYTES % (MANUAL) 6 % (16-48); MONOCYTES % (MANUAL) 12 % (0-11.0); NEUTROPHILS % (MANUAL) 76 (42-76)
[2022-06-09] MEDS ORDERED: FUROSEMIDE 40 MG/4 ML VIAL ONE (03:23)
[2022-06-09] MEDS ORDERED: FUROSEMIDE 40 MG/4 ML VIAL IV ONE (03:30)
[2022-06-09] MEDS ORDERED: IPRATROPIUM NEB FS 0.5 MG/2.5 ML AMPUL.NEB ONE (03:33)
--- NOTE | 2022-06-09 04:09 | NUR ---
report given to rasheed crawford
--- NOTE | 2022-06-09 04:10 | NUR ---
noc rn note patient refused blood draw at this time.
--- NOTE | 2022-06-09 05:02 | NUR ---
noc rn note patient IV access was not good anymore on assessment. patient insist on saving the IV access. dressing reinforced instead.
[2022-06-09 05:13] VITALS: BP 138/73
[2022-06-09] MEDS: BLOOD SUGAR DIAGNOSTIC 1 EACH STRIP IN SCH ×4 (07:13→21:22)
[2022-06-09] MEDS: INSULIN REGULAR, HUMAN 100 UNIT/ML 3 ML VIAL SQ PRN ×4 (07:15→21:26)
--- NOTE | 2022-06-09 07:42 | NUR ---
ADMISSION NOTE PATIENT BROUGHT IN UNIT AT AROUND 0405 AM ACCOMPANIED VIA GURNEY, ACCOMPANIED BY 2 ER PERSONNEL. PATIENT A/OX4 GERMAN SPEAKING BUT SPEAKS AND UNDERSTAND CANADIAN. NO S/S OF APPARENT DISTRESS ON 3LPM OF O2 VIA NC. DENIES PAIN AT THIS TIME. PATIENT READING SR WITH 92 BPM ON THE TELE MONITOR. DROPLET ISOLATION PUT IN PLACE FOR DX OF CAP. PATIENT WISHES TO BE DNR/DNI BUT DOES NOT HAVE LEGAL DOCUMENTS AT THE MOMENT-- ASKED PATIENT TO HAVE SOME ONE BRING IN DOCUMENT, PUT FULL CODE FOR NOW. NEW ID BAND ON PATIENT. BELONGINGS SIGNED FOR AND DOCUMENTED, PATIENT WTH UPPER AND LOWER DENTURES AND HAVE HIS OWN OXYGEN TANK AT BEDSIDE. PATIENT PICTURES TAKEN ON HIS EXTREMITIES BUT REFUSED TO SHOW ME HIS BACK AND SACRAL AREA. PATIENT ORIENTED IN THE UNIT AND THE USE OF CALL LIGHT. ALL NEEDS ATTENDED. REPORT GIVEN TO PADMINI QUINTERO FOR CONTINUITY OF PATIENT CARE.
[2022-06-09] MEDS: PANTOPRAZOLE 40 MG TABLET.DR PO SCH (07:45)
--- NOTE | 2022-06-09 07:50 | NUR ---
RN NOTES: ON TELEVISION NEWS ANCHOR WITH CURRENT READING OF SINUS RHYTHM 92 BPM.
--- NOTE | 2022-06-09 07:50 | NUR ---
BOARDING ROOM FIXER OPENING NOTES: RECEIVED PT IN BED AWAKE, ALERT AND ORIENTED X 4 AND ABLE TO MAKE NEEDS KNOWN. NO SOB NOTED,NO CARDIAC DISTRESS NOTED AND ON O2 INHALATION AT 2LPM VIA NASAL CANNULA, DENIES PAIN AT THIS TIME. HD ACCESS LCW CATH AND RIGHT AVF. IV ACCESS ON LEFT FOREARM GAUGE 20 PATENT INTACT AND SL. SAFETY MEASURES MAINTAINED: BED LOCKED AND IN LOWEDST POSITION, SIDE RAILS UP X 2 CALL LIGHT AND BED SIDE TABLE IN EASY REACH FOR HELP. WILL MONITOR ACCORDINGLY.
[2022-06-09 08:00] VITALS: BP 141/89
[2022-06-09] MEDS ORDERED: ONDA8TAB65 PO (10:59)
[2022-06-09] MEDS ORDERED: LIPA1CAP15 PO (10:59)
[2022-06-09] MEDS ORDERED: ICOS1CAP PO (10:59)
[2022-06-09] MEDS ORDERED: ASPI-1420 PO (10:59)
[2022-06-09] MEDS ORDERED: SEMA0.25 SQ (10:59)
[2022-06-09] MEDS ORDERED: LEVO750T46 PO (10:59)
[2022-06-09] MEDS ORDERED: CICL6.6S5 TD (10:59)
[2022-06-09] MEDS ORDERED: BREZTRI INH (10:59)
[2022-06-09] MEDS ORDERED: PSEU30TA34 PO (10:59)
[2022-06-09] MEDS ORDERED: BENZ200C53 PO (10:59)
[2022-06-09] MEDS ORDERED: SODI10PO PO (10:59)
[2022-06-09] MEDS ORDERED: IBUP-1955 PO (10:59)
[2022-06-09] MEDS ORDERED: INSU100V7 SQ (10:59)
[2022-06-09] MEDS ORDERED: ROSU10TA29 PO (10:59)
[2022-06-09] MEDS ORDERED: BETA45CR3 TP (10:59)
[2022-06-09] MEDS ORDERED: SODI15OR5 PO (10:59)
[2022-06-09] MEDS ORDERED: CLON0.1T PO (10:59)
[2022-06-09] MEDS ORDERED: PRAM0.258 PO (10:59)
[2022-06-09] MEDS ORDERED: LOSA50TA39 PO (10:59)
[2022-06-09] MEDS ORDERED: ERGO500093 PO (10:59)
[2022-06-09] MEDS ORDERED: NITR0.4T48 SL (10:59)
[2022-06-09] MEDS ORDERED: CILO100T PO (10:59)
--- NOTE | 2022-06-09 11:00 | NUR ---
RN NOTES: PATIENT STARTED HIS HD WITH HD RN GIUSEPPE, VS WNL. PT VERBALLY RESPONSIVE AND STABLE.
[2022-06-09 12:00] VITALS: BP 108/65
--- NOTE | 2022-06-09 14:00 | NUR ---
RN NOTES: S/P HD, OUTPUT 3000ML. PT COMFORTABLE, NO SOB OR CARDIAC DISTRESS NOTED, VS WNL.
[2022-06-09] MEDS ORDERED: CLONIDINE HCL 0.1 MG TABLET PO PRN (15:00)
[2022-06-09 16:00] VITALS: BP 159/81
[2022-06-09] MEDS: LOSARTAN POTASSIUM 50 MG TABLET PO SCH (16:55)
[2022-06-09] MEDS: CILOSTAZOL 100 MG TABLET PO SCH (16:55)
[2022-06-09] MEDS: CALCIUM ACETATE 667 MG CAP/TAB PO SCH (17:20)
--- NOTE | 2022-06-09 19:04 | NUR ---
BARTACKER CLOSING NOTES: PT IN BED AWAKE, ALERT AND ORIENTED X 4 AND ABLE TO MAKE NEEDS KNOWN. NO SOB NOTED,NO CARDIAC DISTRESS NOTED AND ON O2 INHALATION AT 2LPM VIA NASAL CANNULA, DENIES PAIN AT THIS TIME. ON LABORATORY CLERK WITH CURRENT READING OF S/P HD WITH 3000ML OUTPUT HD ACCESS LCW CATH AND RIGHT AVF. IV ACCESS ON LEFT FOREARM GAUGE 20 PATENT INTACT AND SL. SAFETY MEASURES MAINTAINED: BED LOCKED AND IN LOWEST POSITION, SIDE RAILS UP X 2 CALL LIGHT AND BED SIDE TABLE IN EASY REACH FOR HELP. WILL MONITOR ACCORDINGLY. ENDORSED TO ELECTRIC ORGAN INSPECTOR AND REPAIRER RN FOR CONTINUITY OF CARE.
--- NOTE | 2022-06-09 19:30 | NUR ---
HARNESS CLEANER OPENING NOTE RECEIVED PATIENT IN BED, WITH HOB ELEVATED, ALERT AND ORIENTED X4, WITH FAMILY AT BEDSIDE. AFEBRILE AND NOT IN ANY FORM OF ACUTE DISTRESS. ON O2 INHALATION VIA NASAL CANNULA AT 3LPM. ON TELE MONITORING. WITH IV ACCESS ON JESSICA 20G-SL. NOTED WITH R ARM AV FISTULA AND LCW HD CATH. SAFETY MEASURES IN PLACE. KEPT BED IN LOCKED AND IN LOW POSITION. SIDE RAILS UP X2. ADVISED TO USE THE CALL LIGHT WHEN IN NEED OF ASSISTANCE.
[2022-06-09 20:00] VITALS: BP 141/74
[2022-06-09] MEDS: CEFTRIAXONE 1 G in IV D5W 50 ML IV SCH (20:26)
--- NOTE | 2022-06-09 21:00 | NUR ---
WOUND SPECIALIST NOTE IV ACCESS ON L ANTECUBITAL NO LONGER PATENT. REINSERTED ANOTHER IV LINE ON L HAND 22G. TOLERATED THE PROCEDURE WELL.
[2022-06-09] MEDS: ATORVASTATIN 40 MG TABLET PO SCH (21:23)
[2022-06-09] MEDS: INSULIN GLARGINE, 100 UNIT/ML CARTRIDGE SQ SCH (21:27)
[2022-06-10 05:46] LABS: BASOPHILS % (AUTO) 0.3 % (0.0-2.0); EOSINOPHILS % (AUTO) 0.6 % (0.0-6.0); HEMATOCRIT 27 % (39-51); HEMOGLOBIN 8.4 g/dL (13.5-17.5); LYMPHOCYTES # (AUTO) 0.3 K/uL (0.8-4.8); LYMPHOCYTES % (AUTO) 6.3 % (20.0-44.0); MEAN CORPUSCULAR HGB CONC 31 g/dl (31.0-36.0); MEAN CORPUSCULAR VOLUME 98 fL (80-96); MONOCYTES # (AUTO) 0.4 K/uL (0.1-1.30); NEUTROPHILS # (AUTO) 3.3 K/uL (1.8-8.9); NEUTROPHILS % (AUTO) 82.8 % (43.0-81.0); PLATELET COUNT (AUTO) 210 K/uL (150-450)
[2022-06-10 05:58] LABS: CALCIUM, SERUM 7.4 mg/dL (8.5-10.1); CREATININE 6.4 mg/dL (0.6-1.3); MAGNESIUM 2.3 mg/dL (1.8-2.4); PHOSPHORUS 4.5 mg/dL (2.5-4.9); POTASSIUM 4.9 mmol/L (3.5-5.1)
[2022-06-10] MEDS: BLOOD SUGAR DIAGNOSTIC 1 EACH STRIP IN SCH ×4 (06:32→21:11)
--- NOTE | 2022-06-10 06:34 | NUR ---
OIL HEAT TECHNICIAN CLOSING NOTE PATIENT IN BED, WITH HOB ELEVATED, ASLEEP BUT EASY TO AROUSE AND RESPONSIVE. AFEBRILE AND NOT IN ANY FORM OF ACUTE DISTRESS. ON O2 INHALATION VIA NASAL CANNULA AT 3LPM. ON TELE MONITORING WITH CURRENT READING OF SR 79 WITH 1ST DEGREE AVB. WITH IV ACCESS ON L HAND 22G-SL. NOTED WITH R ARM AV FISTULA AND LCW HD CATH. MONITORED FOR ANY S/SX. OF HYPO/HYPERGLYCEMIA. MEDICATED ORDERED. CONTINUOUS ON IV ATB FOR CAP, MONITORED FOR ANY ADVERSE REACTION. SAFETY MEASURES IN PLACE. KEPT BED IN LOCKED AND IN LOW POSITION. SIDE RAILS UP X2. ADVISED TO USE THE CALL LIGHT WHEN IN NEED OF ASSISTANCE. CONSTANT VISUAL CHECK DONE TO ENSURE SAFETY. ALL NURSING NEEDS ATTENDED. ENDORSED TO INCOMING SHIFT FOE CONTINUITY OF CARE.
[2022-06-10] MEDS: INSULIN REGULAR, HUMAN 100 UNIT/ML 3 ML VIAL SQ PRN ×4 (06:38→21:20)
--- NOTE | 2022-06-10 07:35 | NUR ---
VOLCANOLOGY TEACHER OPENING NOTE RECEIVED PATIENT IN BED, WITH HOB ELEVATED, ALERT AND ORIENTED X4, ABLE TO MAKE NEEDS KNOWN, AFEBRILE AND NOT IN ANY FORM OF ACUTE DISTRESS NOTED. ON O2 INHALATION VIA NASAL CANNULA AT 3LPM SATURATING WELL AT 94%. ON TELE MONITORING, READS SINUS RHYTHM 79 BPM WITH 1ST DEGREE AV BLOCK. WITH IV ACCESS L HAND G#24 SALINE LOCKED, PATENT, FLUSHING WELL. NOTED WITH R ARM AV FISTULA AND LCW HD CATH. STRICT I/O REINFORCED/ SAFETY MEASURES IN PLACE. KEPT BED IN LOCKED AND IN LOW POSITION. SIDE RAILS UP X2. ADVISED TO USE THE CALL LIGHT AND TRAY TABLE WITHIN REACH. WILL CONTINUE TO MONITOR.
[2022-06-10] MEDS: CALCIUM ACETATE 667 MG CAP/TAB PO SCH ×3 (07:52→18:25)
[2022-06-10] MEDS: PANTOPRAZOLE 40 MG TABLET.DR PO SCH (07:52)
[2022-06-10 08:00] VITALS: BP 120/52
[2022-06-10] MEDS ORDERED: FUROSEMIDE 80 MG TABLET PO SCH (09:00)
[2022-06-10] MEDS: AZITHROMYCIN 250 MG TABLET PO SCH (09:19)
[2022-06-10] MEDS: ASPIRIN 81 MG TAB.CHEW PO SCH (09:19)
[2022-06-10] MEDS: CILOSTAZOL 100 MG TABLET PO SCH ×2 (09:20→18:25)
[2022-06-10] MEDS: AMLODIPINE BESYLATE 10 MG TABLET PO SCH (09:21)
[2022-06-10] MEDS: LOSARTAN POTASSIUM 50 MG TABLET PO SCH ×2 (09:22→17:00)
[2022-06-10] MEDS: FUROSEMIDE 20 MG TABLET PO SCH (09:39)
--- NOTE | 2022-06-10 10:12 | NUR ---
WOUND CARE CONSULT: PT PRESENTS WITH NECROTIC TOES WITHOUT DRAINAGE, PRESENT ON ADMISSION. DR SOSA CALLED FOR DPM CONSULT. PT REFUSED FULL SKIN ASSESSMENT AND IS CONTINENT/AMBULATORY. IN AGREEMENT WITH PLAN OF CARE.
--- NOTE | 2022-06-10 11:14 | NUR ---
RN NOTES - PATIENT IS NOTED TO HAVE PRODUCTIVE COUGH, DR WILLI JERNIGAN SAW THE PATIENT, ORDERED ALBUTEROL AND ATROVENT VIA HHN INHALATION. CARRIED OUT ORDER. DR WILL ORDER CXR WELL.
[2022-06-10 12:00] VITALS: BP 123/56
--- NOTE | 2022-06-10 12:00 | NUR ---
RN NOTES - PATIENT WAS WITH RT AND NOTED TO HAVE 5 LPM VIA NC, ASKED THE PATIENT WHO PUT IT UP BUT PATIENT MENTIONED HE DID. EDUCATED THE PATIENT NOT TO ADJUST THE OXYGEN SETTINGS MANUALLY.
--- NOTE | 2022-06-10 13:00 | NUR ---
RN NOTES - IV ACCESS NOT PATENT, UNABLE TO FLUSH, PATIENT REQUESTED TO REMOVE, DONE AND COVERED WITH PRESSURE GAUZE, NO BLEEDING NOTED
[2022-06-10] MEDS: ALBUTEROL FS 2.5 MG/3 ML VIAL.NEB NEB SCH ×2 (13:30→20:42)
[2022-06-10 16:00] VITALS: BP 106/57
--- NOTE | 2022-06-10 18:00 | NUR ---
RN NOTES - HD DONE, 2.5 L OUT, WILL HAVE ANOTHER HD TOMORROW MORNING AT 6AM.
--- NOTE | 2022-06-10 19:25 | NUR ---
JIG BORE OPERATOR CLOSING NOTE PATIENT IN BED, WITH HOB ELEVATED, AWAKE, AFEBRILE, NO APPARENT DISTRESS NOTED. PATIENT ON 3LPM OXYGEN VIA NC. TELE MONITORING READS 88 WITH 1ST DEGREE AV BLOCK. NO IV ACCESS NOTED. POST HD R ARM AV FISTULA, COVERED WITH PRESSURE GAUZE NO BLEEDING NOTED. STILL LCW HD CATH. EDUCATED THE PATIENT ON THE IMPORTANCE OF STRICT I/O AND TO LIMIT WATER TO AVOID CONGESTION, PATIENT VERBALIZED UNDERSTANDING. SAFETY MEASURES MAINTAINED. KEPT BED IN LOCKED AND IN LOW POSITION. SIDE RAILS UP X2, CALL LIGHT AND TRAY TABLE WITHIN REACH. ALL DUE MEDS GIVEN, ALL NEEDS MET. ENDORSED TO ONCOMING WARDROBE SUPERVISOR NURSE.
--- NOTE | 2022-06-10 19:30 | NUR ---
PAINTING INSTRUCTOR OPENING NOTE RECEIVED PATIENT IN BED AWAKE, ALERT AND ORIENTED X4, MONEGASQUE SPEAKER.WITH FAMILY AT BEDSIDE. AFEBRILE, NO DISTRESS NOTED. ON O2 INHALATION VIA NASAL CANNULA AT 3LPM. NO SOB NOTED. BREATHING EVEN AND UNLABORED.ON TELE MONITOR. READING SR AT 75.NO IV ACCESS NOTED. WILL INSERT THE IV ACCESS. NOTED WITH R ARM AV FISTULA AND LCW HD CATH. NO BLEEDING NOTED. ALL SAFETY MEASURES IN PLACE. KEPT BED IN LOCKED AND IN LOW POSITION. SIDE RAILS UP X2. ADVISED TO USE THE CALL LIGHT WHEN IN NEED OF ASSISTANCE. WILL CONTINUE TO MONITOR CLOSELY.
[2022-06-10 20:00] VITALS: BP 137/59
[2022-06-10] MEDS: IPRATROPIUM NEB FS 0.5 MG/2.5 ML AMPUL.NEB NEB SCH (20:42)
[2022-06-10] MEDS: CEFTRIAXONE 1 G in IV D5W 50 ML IV SCH (21:03)
[2022-06-10] MEDS: INSULIN GLARGINE, 100 UNIT/ML CARTRIDGE SQ SCH (21:17)
[2022-06-10] MEDS: ATORVASTATIN 40 MG TABLET PO SCH (21:22)
[2022-06-11] VITALS: BP 135/60
[2022-06-11] MEDS: ALBUTEROL FS 2.5 MG/3 ML VIAL.NEB NEB SCH ×4 (01:22→19:38)
[2022-06-11] MEDS: IPRATROPIUM NEB FS 0.5 MG/2.5 ML AMPUL.NEB NEB SCH ×4 (01:22→19:38)
[2022-06-11 04:00] VITALS: BP 119/52
[2022-06-11] MEDS: BLOOD SUGAR DIAGNOSTIC 1 EACH STRIP IN SCH ×4 (06:29→22:33)
--- NOTE | 2022-06-11 06:29 | NUR ---
RETREAD SUPERVISOR CLOSING NOTE PATIENT IN BED AWAKE, ALERT AND ORIENTED X4, YI SPEAKER. AFEBRILE, NO DISTRESS NOTED. ON O2 INHALATION VIA NASAL CANNULA AT 3LPM. NO SOB NOTED. BREATHING EVEN AND UNLABORED.ON TELE MONITOR. READING SR AT 91 WITH FIRST DEGREE AV BLOCK. IV ACCESS NOTED AT LEFT UPPER ARM 22 G , SL INTACT. NOTED WITH R ARM AV FISTULA AND LCW HD CATH. NO BLEEDING NOTED. ALL DUE MEDS GIVEN ORDERED. ALL SAFETY MEASURES IN PLACE. KEPT BED IN LOCKED AND IN LOW POSITION. SIDE RAILS UP X2. ADVISED TO USE THE CALL LIGHT WHEN IN NEED OF ASSISTANCE. WILL CONTINUE TO MONITOR CLOSELY.
--- NOTE | 2022-06-11 07:32 | NUR ---
BRANCH OFFICE MANAGER OPENING NOTE RECEIVED PATIENT LYING AWAKE IN BED, WITH HOB ELEVATED, A/OX4, SLOVAK SPEAKER. AFEBRILE, NO APPARENT DISTRESS NOTED. PATIENT IS RECEIVING HEMODIALYSIS AT THE MOMENT. ON O2 INHALATION VIA NASAL CANNULA AT 3LPM. BREATHING EVEN AND UNLABORED. TELEMONITORING IS READING SR AT 83 BPM. WITH IV ACCESS ON LEFT UPPER ARM G#22, SL INTACT. NOTED WITH R ARM AV FISTULA AND LCW HD CATH. SAFETY MEASURES IN PLACE. KEPT BED IN LOCKED AND IN LOWEST POSITION. SIDE RAILS UP X2, CALL LIGHT AND TRAY TABLE WITHIN REACH. WILL MONITOR THROUGHOUT MY SHIFT.
[2022-06-11 07:35] LABS: BASOPHILS % (AUTO) 0.2 % (0.0-2.0); EOSINOPHILS % (AUTO) 2.5 % (0.0-6.0); HEMATOCRIT 29 % (39-51); HEMOGLOBIN 8.6 g/dL (13.5-17.5); LYMPHOCYTES # (AUTO) 0.6 K/uL (0.8-4.8); LYMPHOCYTES % (AUTO) 12.6 % (20.0-44.0); MEAN CORPUSCULAR HGB CONC 30 g/dl (31.0-36.0); MEAN CORPUSCULAR VOLUME 100 fL (80-96); MONOCYTES # (AUTO) 0.5 K/uL (0.1-1.30); MONOCYTES % (AUTO) 11.6 % (2.0-12.0); NEUTROPHILS # (AUTO) 3.2 K/uL (1.8-8.9); NEUTROPHILS % (AUTO) 73.1 % (43.0-81.0); PLATELET COUNT (AUTO) 228 K/uL (150-450); RED BLOOD CELL COUNT(AUTO) 2.89 MIL/uL (4.5-6.0); WHITE BLOOD COUNT (AUTO) 4.4 K/uL (4.3-11.0)
[2022-06-11 07:51] LABS: CALCIUM, SERUM 7.4 mg/dL (8.5-10.1); CREATININE 5.6 mg/dL (0.6-1.3); MAGNESIUM 2.1 mg/dL (1.8-2.4); PHOSPHORUS 3.5 mg/dL (2.5-4.9); POTASSIUM 4.6 mmol/L (3.5-5.1)
[2022-06-11] MEDS: CALCIUM ACETATE 667 MG CAP/TAB PO SCH ×3 (07:57→17:30)
[2022-06-11] MEDS: PANTOPRAZOLE 40 MG TABLET.DR PO SCH (07:57)
[2022-06-11 08:00] VITALS: BP 114/54
[2022-06-11] MEDS: LOSARTAN POTASSIUM 50 MG TABLET PO SCH ×2 (09:00→16:46)
[2022-06-11] MEDS: AMLODIPINE BESYLATE 10 MG TABLET PO SCH (09:00)
[2022-06-11] MEDS: FUROSEMIDE 20 MG TABLET PO SCH (09:35)
[2022-06-11] MEDS: CILOSTAZOL 100 MG TABLET PO SCH ×2 (09:35→16:46)
[2022-06-11] MEDS: AZITHROMYCIN 250 MG TABLET PO SCH (09:35)
[2022-06-11] MEDS: ASPIRIN 81 MG TAB.CHEW PO SCH (09:35)
--- NOTE | 2022-06-11 09:35 | NUR ---
RN NOTES - HD DONE, 3 L OUT, NO NOTED BLEEDING ON SITE, DRESSING DRY, PATIENT VS IS STABLE
[2022-06-11] MEDS: INSULIN REGULAR, HUMAN 100 UNIT/ML 3 ML VIAL SQ PRN ×3 (12:32→22:37)
--- NOTE | 2022-06-11 14:00 | NUR ---
RN NOTES - PATIENT WITH AT BEDSIDE INQUIRING ABOUT DC DATE. PER DR JERNIGAN, IT MIGHT BE TOMORROW IF EVERYTHING IS STABLE. HEALTH TEACHINGS PROVIDED TO PATIENT REGARDING FLUID RETENTION AND OXYGEN ADMINISTRATION. PATIENT VERBALIZED UNDERSTANDING.
[2022-06-11] MEDS ORDERED: NEPRO VAN 237 ML CAN PO PRN (15:30)
[2022-06-11 16:00] VITALS: BP 144/57
[2022-06-11 17:38] LABS: BAND % (MANUAL) 4 % (0.0-5.0); NEUTROPHILS % (MANUAL) 70 (42-76)
[2022-06-11 17:39] LABS: EOSINOPHILS % (MANUAL) 4 % (0-4); LYMPHOCYTES % (MANUAL) 11 % (16-48); MONOCYTES % (MANUAL) 11 % (0-11.0)
--- NOTE | 2022-06-11 19:25 | NUR ---
FRANCHISE MANAGER CLOSING NOTE PATIENT IN BED, WITH HOB ELEVATED, AWAKE, AFEBRILE, NO APPARENT DISTRESS NOTED. PATIENT ON 3LPM OXYGEN VIA NC. TELE MONITORING READS 93 WITH 1ST DEGREE AV BLOCK. IV ACCESS L UPPER ARM G#22 SALINE LOCKED, PATENT, FLUSHING WELL. POST HD R ARM AV FISTULA, COVERED WITH PRESSURE GAUZE NO BLEEDING NOTED TODAY. WITH LCW HD CATH. EDUCATED THE PATIENT ON THE IMPORTANCE OF STRICT I/O AND TO LIMIT WATER TO AVOID CONGESTION, PATIENT VERBALIZED UNDERSTANDING. SAFETY MEASURES MAINTAINED. KEPT BED IN LOCKED AND IN LOW POSITION. SIDE RAILS UP X2, CALL LIGHT AND TRAY TABLE WITHIN REACH. ALL DUE MEDS GIVEN, ALL NEEDS MET. ENDORSED TO ONCOMING MECHANIST NURSE.
--- NOTE | 2022-06-11 19:30 | NUR ---
DINING ROOM MANAGER OPENING NOTE RECEIVED PATIENT IN BED; AWAKE, ALERT AND ORIENTED X 4. BREATHING EVEN AND NONLABORED. ON O2 INHALATION @ 3 LPM VIA NASAL CANNULA; TOLERATING WELL. NOT IN ANY FORM OF RESPIRATORY OR CARDIAC DISTRESS NOTED. NO C/O ANY PAIN OR DISCOMFORT MADE AT THIS TIME. ON TELE MONITORING WITH CURRENT READING OF SR WITH 1ST DEGREE AV BLOCK HR-90 BPM. WITH IV ACCESS ON LEFT FOREARM 22G; PATENT, INTACT AND SALINE LOCKED. WITH RIGHT ARM AV FISTULA AND LEFT CHEST WALL HD PERMACATH; INTACT. ABLE TO MAKE NEEDS KNOWN. SAFETY MEASURES IMPLEMENTED: HEAD OF BED ELEVATED, CALL LIGHT AND TABLE WITHIN REACH, SIDE RAILS UP X 2, BED IN LOWEST LOCKED POSITION. WILL CONTINUE TO MONITOR.
[2022-06-11 20:00] VITALS: BP 123/57
[2022-06-11 20:03] VITALS: BP 123/57
[2022-06-11] MEDS: CEFTRIAXONE 1 G in IV D5W 50 ML IV SCH (21:09)
[2022-06-11] MEDS: ATORVASTATIN 40 MG TABLET PO SCH (22:13)
[2022-06-11] MEDS: INSULIN GLARGINE, 100 UNIT/ML CARTRIDGE SQ SCH (22:35)
[2022-06-12] VITALS: BP 119/56
[2022-06-12] MEDS: IPRATROPIUM NEB FS 0.5 MG/2.5 ML AMPUL.NEB NEB SCH ×3 (00:54→07:35)
[2022-06-12] MEDS: ALBUTEROL FS 2.5 MG/3 ML VIAL.NEB NEB SCH ×3 (00:54→07:35)
[2022-06-12 04:00] VITALS: BP 109/52
[2022-06-12] MEDS: BLOOD SUGAR DIAGNOSTIC 1 EACH STRIP IN SCH (06:15)
[2022-06-12] MEDS: INSULIN REGULAR, HUMAN 100 UNIT/ML 3 ML VIAL SQ PRN (06:29)
[2022-06-12 06:38] LABS: BASOPHILS % (AUTO) 0.3 % (0.0-2.0); EOSINOPHILS % (AUTO) 3.7 % (0.0-6.0); HEMATOCRIT 28 % (39-51); HEMOGLOBIN 8.6 g/dL (13.5-17.5); LYMPHOCYTES # (AUTO) 0.7 K/uL (0.8-4.8); LYMPHOCYTES % (AUTO) 13.5 % (20.0-44.0); MEAN CORPUSCULAR HGB CONC 31 g/dl (31.0-36.0); MEAN CORPUSCULAR VOLUME 98 fL (80-96); MONOCYTES # (AUTO) 0.7 K/uL (0.1-1.30); MONOCYTES % (AUTO) 12.4 % (2.0-12.0); NEUTROPHILS # (AUTO) 3.9 K/uL (1.8-8.9); NEUTROPHILS % (AUTO) 70.1 % (43.0-81.0); PLATELET COUNT (AUTO) 260 K/uL (150-450); RED BLOOD CELL COUNT(AUTO) 2.88 MIL/uL (4.5-6.0); WHITE BLOOD COUNT (AUTO) 5.5 K/uL (4.3-11.0)
--- NOTE | 2022-06-12 06:40 | NUR ---
BLACKJACK SUPERVISOR CLOSING NOTE PATIENT IN BED; AWAKE, A/O X 4. BREATHING EQUAL AND UNLABORED. STILL ON O2 INHALATION @ 3 LPM VIA NASAL CANNULA; WELL TOLERATED. IN NO ACUTE DISTRESS. NO C/O ANY PAIN OR DISCOMFORT MADE AT THIS TIME. ON TELE MONITORING WITH CURRENT READING OF SR WITH 1ST DEGREE AV BLOCK HR-92 BPM. WITH IV ACCESS ON LEFT UPPER ARM 22G; PATENT, INTACT AND SALINE LOCKED. WITH RIGHT ARM AV FISTULA AND LEFT CHEST WALL HD PERMACATH; INTACT. ALL NEEDS ATTENDED TO. SAFETY MEASURES MAINTAINED: HEAD OF BED ELEVATED, CALL LIGHT AND TABLE WITHIN EASY REACH, SIDE RAILS UP X 2, BED IN LOWEST LOCKED POSITION. ENDORSED TO MORNING SHIFT FOR SHARON.
[2022-06-12 07:00] VITALS: BP 113/53
--- NOTE | 2022-06-12 07:00 | NUR ---
DOCUMENTATION CLERK OPENING NOTES PATIENT LAYING IN BED, A/O X 4, ABLE TO MAKE NEEDS KNOWN, TOLERATING WELL ON 3 LPM O2 VIA CANNULA. NO PAIN OR DISCOMFORT AT THIS TIME. TELE MONITOR IN PLACE READING SR 88 WITH 1ST DEGREE AV BLOCK. FISTULA ON RIGHT FOREARM WITH THRILL AND BRUIT NOTED. JESSICA # [id number] SL CLEAN, INTACT, AND FLUSHING WELL. L CHEST WALL PERMACATH IN PLACE. SAFETY MEASURES IN PLACE: BED IN LOWEST LOCKED POSITION, SIDE RAILS UP X 2, CALL LIGHT WITHIN REACH. WILL CONTINUE TO MONITOR.
[2022-06-12 07:33] LABS: CALCIUM, SERUM 8.4 mg/dL (8.5-10.1); CREATININE 5.2 mg/dL (0.6-1.3); MAGNESIUM 2.2 mg/dL (1.8-2.4); POTASSIUM 4.9 mmol/L (3.5-5.1)
[2022-06-12 07:43] LABS: PHOSPHORUS 3.2 mg/dL (2.5-4.9)
[2022-06-12] MEDS: PANTOPRAZOLE 40 MG TABLET.DR PO SCH (08:25)
[2022-06-12] MEDS: CALCIUM ACETATE 667 MG CAP/TAB PO SCH (08:25)
[2022-06-12] MEDS: AZITHROMYCIN 250 MG TABLET PO SCH (08:26)
[2022-06-12] MEDS: CILOSTAZOL 100 MG TABLET PO SCH (08:26)
[2022-06-12] MEDS: LOSARTAN POTASSIUM 50 MG TABLET PO SCH (08:26)
[2022-06-12] MEDS: ASPIRIN 81 MG TAB.CHEW PO SCH (08:26)
[2022-06-12 08:27] VITALS: BP 120/75
[2022-06-12] MEDS: AMLODIPINE BESYLATE 10 MG TABLET PO SCH (08:27)
[2022-06-12] MEDS: FUROSEMIDE 20 MG TABLET PO SCH (08:27)
--- NOTE | 2022-06-12 10:00 | NUR ---
PATIENT LEFT AMA PATIENT STATED HIS DESIRE TO LEAVE HOSPITAL PRIOR TO BEING SEEN BY MD. RISKS OF LEAVING HOSPITAL PRIOR TO BEING DISCHARGED BY MD WERE EXPLAINED X 3, PATIENT AGAIN INSISTED ON LEAVING HOSPITAL IMMEDIATELY. IV LINE AND ID BANDS REMOVED. TELE MONITOR REMOVED. PATIENT SIGNED AMA FORM AND LEFT HOSPITAL VIA WHEELCHAIR ACCOMPANIED BY DAUGHTER. PATIENT STABLE AT TIME OF DISCHARGE. Addendum: 06/12/22 at 1313 by MIRTHA QUEEN RN [id number]
== END 2022-06-12 10:55 | disposition left against medical advice (07) | DRG 291 ==
LOC: ER 23:36 → TELE 06-09 02:58
PROVIDERS: ADMIT Nurse Practitioner Acute Care; ATTEND Nurse Practitioner Acute Care
PROC: 5A1D70Z Performance of Urinary Filtration, Intermittent, Less than 6 Hours Per Day (ICD-10-PCS; principal; 2022-06-09)
DX: I13.2 Hypertensive heart and chronic kidney disease with heart failure and with stage 5 chronic kidney disease, or end stage renal disease (principal); I50.31 Acute diastolic (congestive) heart failure; J96.21 Acute and chronic respiratory failure with hypoxia; N18.6 End stage renal disease; J44.0 Chronic obstructive pulmonary disease with (acute) lower respiratory infection; E11.52 Type 2 diabetes mellitus with diabetic peripheral angiopathy with gangrene; J20.8 Acute bronchitis due to other specified organisms; D63.8 Anemia in other chronic diseases classified elsewhere; E11.22 Type 2 diabetes mellitus with diabetic chronic kidney disease; E11.42 Type 2 diabetes mellitus with diabetic polyneuropathy; L97.519 Non-pressure chronic ulcer of other part of right foot with unspecified severity; E11.621 Type 2 diabetes mellitus with foot ulcer; E11.65 Type 2 diabetes mellitus with hyperglycemia; E66.01 Morbid (severe) obesity due to excess calories; M89.8X9 Other specified disorders of bone, unspecified site; Z53.29 Procedure and treatment not carried out because of patient's decision for other reasons; Z66 Do not resuscitate; Z79.4 Long term (current) use of insulin; Z79.82 Long term (current) use of aspirin; Z85.118 Personal history of other malignant neoplasm of bronchus and lung; Z91.199 Patient's noncompliance with other medical treatment and regimen due to unspecified reason; Z99.2 Dependence on renal dialysis; Z99.81 Dependence on supplemental oxygen
CPT/HCPCS: 36415; 36600; 71045-TC; 73630-TC; 80048-TC; 80076-TC; 82803-TC; 82962-TC; 83735-TC; 83880; 84100-TC; 84484-TC; 85025-TC; 86706; 87040-TC; 87081-TC; 87340; 90935-TC; 93926-TC; 94799-TC; C9803; G0378; J0456; J0696; J1815; J1940; J2930; J7030; J7050; J7060